=== PATIENT | female | born 2000 | race Caucasian/White ===

== ENCOUNTER 2024-06-12 05:28 | Outpatient (CLI) | payer MEDICAID, OTHER | END 2024-06-12 23:59 | disposition home or self-care (01) | LOC: MRI02 05:28 | PROVIDERS: ATTEND Family Medicine Sports Medicine | DX: S83.271A Complex tear of lateral meniscus, current injury, right knee, initial encounter (principal); M23.302 Other meniscus derangements, unspecified lateral meniscus, unspecified knee; M25.461 Effusion, right knee; M71.21 Synovial cyst of popliteal space [Baker], right knee; M23.349 Other meniscus derangements, anterior horn of lateral meniscus, unspecified knee; X58.XXXA Exposure to other specified factors, initial encounter; Y93.9 Activity, unspecified; Y92.89 Other specified places as the place of occurrence of the external cause; Y99.8 Other external cause status | CPT/HCPCS: 73721 ==

== ENCOUNTER 2024-10-26 06:10 | Outpatient (CLI) | payer MEDICAID ==
[2024-10-26] MEDS ORDERED: LIDOcaine 1%/PF 5ML 10 MG/ML VIAL ONE (06:32)
[2024-10-26] MEDS ORDERED: iohexol 300 MG/1 ML 50ml polymer ONE (06:32)
[2024-10-26] MEDS ORDERED: LIDOcaine 1% 30ml preserv. free vial ONE (06:33)
[2024-10-26] MEDS ORDERED: GADOTERATE MEGLUMINE 7.5 MMOL/15 ML VIAL IV ONE (06:33)
--- NOTE | 2024-10-26 07:43 | RADIOLOGY REPORT ---
C-ARM FLUOROSCOPY: PROCEDURE: Right knee injection FLUOROSCOPY TIME: 0.1 DAP: 1 mgy FINDINGS: Spot intraoperative C arm radiographs demonstrating right knee injection for MR arthrogram. IMPRESSION: Please refer to surgical report for detailed findings.
--- NOTE | 2024-10-26 08:29 | RADIOLOGY REPORT ---
CLINICAL HISTORY: Other tear of medial meniscus, current injury. Right knee pain. History of prior s urgery. History of lateral meniscus tear. COMPARISON: MR MRI LOWER EXTREMITY RIGHT on DOS: 06/12/24 TECHNIQUE: Multisequence multiplanar MR arthrogram images of the right knee were obtained without con trast. FINDINGS: Cruciate ligaments: ACL and PCL are intact. Extensor mechanism: Quadriceps mechanism and patellar tendon are intact. Edema in Hoffa's fat pad may be secondary to the contrast injection. There is lateral subluxation of the patella. TT-TG distance is approximately 21 mm, abnormal. Collateral ligaments: Medial and lateral collateral ligaments are intact and otherwise unremarkable. Menisci: Medial meniscus is intact. There is abnormal morphology of the body and anterior horn of the lateral meniscus with abnormal blunting of the free edge of the body of the lateral meniscus, likely at least partially due to postsurgical changes associated with the previously seen meniscal tear. T here is ill-defined intrasubstance T2 signal in the body of the lateral meniscus, with no associated contrast extension into this location to confirm tear. The body of the lateral meniscus is mostly pos itioned laterally with respect to the articular surface of the lateral femoral condyle, although does not extend beyond the medial tibial margin. Severely attenuated, indistinct, poorly visualized fiber s of the anterior horn of the lateral meniscus. Cartilage: Chondral thinning mild to moderate fraying in the lateral compartment involving the weight -bearing zone of the lateral femoral condyle and adjacent portions of the lateral tibial plateau. The re are areas of partial-thickness to near full-thickness chondral loss of the posterior aspect of the weight-bearing zone of the lateral femoral condyle and adjacent portions of the lateral tibial plate au. Mild subchondral edema in the posterior aspect of the weight-bearing surface of the lateral femor al condyle and adjacent portions of the lateral tibial plateau. Bones: No acute fracture or focal marrow contusion. Joint fluid: Adequate distention of the joint with contrast. There are a few small foci of T1 and T2 hypointense signal within the suprapatellar recess, may be due to small gas bubbles from the injectio n. Likely mild synovitis. There is a popliteal cyst with multiple septations and [id number] syn ovitis, measuring up to 4.8 cm. Other: No other significant findings. IMPRESSION: 1. Abnormal morphology of the body and anterior horn of the lateral meniscus, most likely due to inte rval postsurgical changes 4 the previously seen lateral meniscal tear. Mild intrasubstance T2 hyperin tense signal in the body of the lateral meniscus likely due to postsurgical changes and intrasubstanc e degeneration with no contrast extension into this location to suggest tear. Severely attenuated, in distinct fibers of the anterior horn of the lateral meniscus. Remaining portions of the body of the l ateral meniscus is positioned lateral to the articular surface of the lateral femoral condyle. 2. 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 3. Lateral subluxation of the patella. Abnormal TT-TG distance. 4. Popliteal cyst with septations and synovitis. 5. Likely mild synovitis in the suprapatellar recess. 6. Additional findings as described above.
== END 2024-10-26 23:59 | disposition home or self-care (01) ==
LOC: RAD 06:10
PROVIDERS: ATTEND Family Medicine Sports Medicine
DX: S83.011A Lateral subluxation of right patella, initial encounter (principal); S83.241A Other tear of medial meniscus, current injury, right knee, initial encounter; M77.9 Enthesopathy, unspecified; M25.561 Pain in right knee; I10 Essential (primary) hypertension; Z79.890 Hormone replacement therapy; Z79.891 Long term (current) use of opiate analgesic; Z79.899 Other long term (current) drug therapy; Z98.890 Other specified postprocedural states; Z82.49 Family history of ischemic heart disease and other diseases of the circulatory system; X58.XXXA Exposure to other specified factors, initial encounter; Y93.89 Activity, other specified; Y92.89 Other specified places as the place of occurrence of the external cause; Y99.8 Other external cause status
CPT/HCPCS: 27369; 73722; 77002; A9575; J2003; J3490; Q9967